=== PATIENT | female | born 1995 | race Two or more races ===

== ENCOUNTER → 2019-12-11 | Outpatient (CLI) | payer OTHER | END | disposition home or self-care (01) | LOC: PRENATAL 09:00 | DX: O35.3XX0 Maternal care for (suspected) damage to fetus from viral disease in mother, not applicable or unspecified (principal); Z36.89 Encounter for other specified antenatal screening ==

== ENCOUNTER 2020-04-16 09:07 | Inpatient (IN) | payer OTHER ==
[~2020-04-16] VITALS: Ht 152.4 cm; Wt 68.0 kg
[2020-04-16] MEDS ORDERED: PRENATAL + DHA1 EAC1 PO (15:52)
== END 2020-04-18 13:59 | disposition home or self-care (01) | DRG 805 ==
LOC: LDR 09:07 → OB/GYN 21:46
PROVIDERS: ADMIT Obstetrics & Gynecology; ATTEND Obstetrics & Gynecology
PROC: 10E0XZZ Delivery of Products of Conception, External Approach (ICD-10-PCS; principal; 2020-04-16)
PROC: 3E033VJ Introduction of Other Hormone into Peripheral Vein, Percutaneous Approach (ICD-10-PCS; 2020-04-16)
PROC: 4A1HXFZ Monitoring of Products of Conception, Cardiac Rhythm, External Approach (ICD-10-PCS; 2020-04-16)
DX: O98.52 Other viral diseases complicating childbirth (principal); U07.1 COVID-19; Z37.0 Single live birth; Z3A.40 40 weeks gestation of pregnancy; O48.0 Post-term pregnancy